=== PATIENT | female | born 1990 | race African-American/Black ===

== ENCOUNTER 2019-02-26 12:36 | Emergency (ER) | payer SELFPAY ==
[~2019-02-26] VITALS: Ht 170.2 cm; Wt 75.0 kg
[2019-02-26 13:30] VITALS: BP 120/71
[2019-02-26] MEDS ORDERED: IBUPROFEN 600MG TABLET PO ONE (13:30)
== END 2019-02-26 13:31 | disposition home or self-care (01) ==
LOC: ER 12:36
DX: S20.212A Contusion of left front wall of thorax, initial encounter (principal); S43.402A Unspecified sprain of left shoulder joint, initial encounter; V49.40XA Driver injured in collision with unspecified motor vehicles in traffic accident, initial encounter; Y93.89 Activity, other specified; Y92.410 Unspecified street and highway as the place of occurrence of the external cause
CPT/HCPCS: 99282

== ENCOUNTER 2019-02-27 19:22 | Emergency (ER) | payer SELFPAY ==
[~2019-02-27] VITALS: Ht 170.2 cm; Wt 77.0 kg
[2019-02-27] MEDS ORDERED: ACETAMINOPHEN 500MG TABLET PO ONE (21:30)
[2019-02-27] MEDS ORDERED: IBUPROFEN 600MG TABLET PO ONE (21:30)
[2019-02-27] MEDS ORDERED: ONDANSETRON 4MG ODT PO ONE (21:30)
[2019-02-27 22:17] VITALS: BP 126/76
== END 2019-02-27 22:17 | disposition home or self-care (01) ==
LOC: ER 20:15
DX: S06.0X0A Concussion without loss of consciousness, initial encounter (principal); R07.89 Other chest pain; V49.49XA Driver injured in collision with other motor vehicles in traffic accident, initial encounter; Y93.89 Activity, other specified; Y92.89 Other specified places as the place of occurrence of the external cause; Y99.8 Other external cause status; F12.10 Cannabis abuse, uncomplicated; Z88.6 Allergy status to analgesic agent; Z88.5 Allergy status to narcotic agent
CPT/HCPCS: 93005; 99284; Q0162